=== PATIENT | female | born 1990 | race Native Hawaiian/Other Pacific Islander ===

== ENCOUNTER 2016-07-08 09:28 | Outpatient (CLI) | payer BC ==
[2016-07-08 12:16] LABS: PLATELET COUNT 246 K/uL (152-353)
[2016-07-08 12:36] LABS: POTASSIUM 4.1 mmol/L (3.6-5.2); SODIUM 135 mmol/L (136-145)
== END 2016-07-08 19:12 | disposition home or self-care (01) ==
LOC: LABW 09:28
PROVIDERS: Internal Medicine
DX: R11.2 Nausea with vomiting, unspecified (principal)
CPT/HCPCS: 36415; 80053; 81000; 81025; 82150; 83690; 85007; 85027

== ENCOUNTER 2019-11-30 09:15 | Outpatient (CLI) | payer BC, OTHER | END 2019-11-30 21:05 | disposition home or self-care (01) | LOC: LAB 09:15 | DX: Z20.828 Contact with and (suspected) exposure to other viral communicable diseases (principal) | CPT/HCPCS: 87635; G2023; U0003 ==

== ENCOUNTER 2020-08-22 08:35 | Outpatient (CLI) | payer BC | END 2020-08-22 23:16 | disposition home or self-care (01) | LOC: RESP 08:35 | PROVIDERS: ATTEND Physician Assistant | DX: R07.9 Chest pain, unspecified (principal); R53.83 Other fatigue ==